=== PATIENT | male | born 1950 | race Caucasian/White ===

== ENCOUNTER 2023-01-15 05:23 | Day surgery (SDC) | payer MEDICARE, OTHER, SELFPAY ==
[2022-12-31 10:17] VITALS: BMI 28.8
--- NOTE | 2023-01-14 14:40 | PM.HPGS ---
History of Present Illness History of Present Illness Consent: Risks, benefits, and alternatives have been discussed and questions answered. Patient agrees to proceed with procedure. Chief complaint: neoplasm screening Narrative: Álvaro Montes is a 72 year old male referred for colon cancer screening. His last colonoscopy was 11 years ago. Review of Systems Review of Systems: All systems reviewed & are unremarkable except as noted in HPI and below PMFSH Social History Social History Smoking status: Never smoker Alcohol intake: current Drinks per week: 1 Substance use: never Substance use type: does not use Living arrangements: with family Spiritual care concerns: No Meds Home Medications and Allergies Home Medications Medication Instructions Recorded Confirmed Type simvastatin 20 mg tablet 70 mg PO DAILY 12/31/22 01/15/23 History Allergies Allergy/AdvReac Type Severity Reaction Status Date / Time No Known Allergies Allergy Verified 01/15/23 07:00 Exam Const: General: alert Orientation/consciousness: patient oriented x3 Resp: Auscultation: clear to auscultation bilaterally Cardio: Rhythm: regular rhythm GI: GI Palp: Yes Soft to palpation and No Tenderness to palpation present (GI) Neuro: General: patient oriented x3 Assessment and Plan Assessment and plan (1) Colon cancer screening: Code(s): Z12.11 - Encounter for screening for malignant neoplasm of colon Status: Acute Assessment and Plan: Colonoscopy with possible biopsy or polypectomy or cautery or injection of substances.
[2023-01-15 07:02] VITALS: BP 116/75; PULSE 63; RESP 20; TEMP 36.6; O2SAT 98; BMI 27.9
[2023-01-15] MEDS: LACTATED RINGERS 1,000 ML 150 ML IV CONT (07:04)
--- NOTE | 2023-01-15 07:54 | P.PNAN_ITS ---
Anes - Initial Pre Proc Eval Procedure: Operation Date: 01/15/23 08:15 Proposed Procedures p Screening Colonoscopy - Donald Estrada MD Date/Time: 01/15/23 07:54 Surgeon: Donald Estrada MD Pre Op Diagnosis: neoplasm screening Patient Data Age: 72 Gender: M Height: 1.91 m Weight: 101.4 kg Last Vital Signs Temp 97.8 F 01/15/23 07:02 Pulse 63 01/15/23 07:02 Resp 20 01/15/23 07:02 BP 116/75 01/15/23 07:02 Pulse Ox 98 01/15/23 07:02 O2 Del Method Room Air 01/15/23 07:02 Allergies Allergy/AdvReac Type Severity Reaction Status Date / Time No Known Allergies Allergy Verified 01/15/23 07:00 Home Medications Medication Instructions Recorded Confirmed Type simvastatin 20 mg tablet 70 mg PO DAILY 12/31/22 01/15/23 History Patient hx anesthesia problems: none Family hx anesthesia problems: none Results Review: All pre-operative results and documents have been reviewed as part of the pre- operative evaluation. [facility] Social History Social History Smoking status: Never smoker Alcohol intake: current Drinks per week: 1 Substance use: never Substance use type: does not use Living arrangements: with family Spiritual care concerns: No Anes - Eval Final PreProcedure Day of Procedure 01/15/23 07:54 Patient weight: normal Heart: regular rate and rhythm Lungs: clear to auscultation Airway: Mallampati scale class II Neurological: alert and oriented Last oral intake: >/= 8 hours ASA classification: III Emergent: no Anesthetic plan: proceed Anesthesia type and monitoring: general GIVS and standard monitoring Results Review: All pre-operative results and documents have been reviewed as part of the pre- operative evaluation. Informed Consent: The patient's anesthetic plan and its attendant risks and benefits were discussed with the patient/family/POA. Questions were solicited and answers provided to the satisfaction of the patient/family/POA.
[2023-01-15 08:28] VITALS: BP 95/60; PULSE 56; RESP 18; O2SAT 95
[2023-01-15 08:38] VITALS: BP 98/66; PULSE 52; RESP 13; O2SAT 97
[2023-01-15 08:48] VITALS: BP 103/69; PULSE 58; RESP 18; O2SAT 97
== END 2023-01-15 08:52 | disposition home or self-care (01) ==
PROVIDERS: Visit Provider Internal Medicine Gastroenterology
PROC: 0DJD8ZZ Inspection of Lower Intestinal Tract, Via Natural or Artificial Opening Endoscopic (ICD-10-PCS; CPT 45378; principal; 2023-01-15 08:15)
DX: Z12.11 Encounter for screening for malignant neoplasm of colon (principal); D12.8 Benign neoplasm of rectum
CPT/HCPCS: 45380; 88305; J2704; J7120

== ENCOUNTER 2025-04-25 08:21 | Outpatient (CLI) | payer MEDICARE, OTHER, SELFPAY ==
[2025-04-25 11:04] LABS: Hematocrit 44.9 % (42.0-52.0); Hemoglobin 14.6 g/dL (14.0-18.0); Immature Granulocyte Percent A 0.2 % (0-0.5); Lymphocytes Absolute Auto 2.54 K/mm3 (0.9-3.2); Mean Corpuscular HGB Conc 32.5 g/dl (32-36); Mean Corpuscular Hemoglobin 30.0 pg (26-34); Mean Corpuscular Volume 92.4 fl (80-100); Nucleated Red Blood Cells Absolute Auto 0.000 K/mm3 (0.0-0.012); Nucleated Red Blood Cells Perc 0.0 % (0.0-0.2); Platelet Count Result 239 k/mm3 (150-375); Red Blood Count 4.86 M/mm3 (4.6-6.20); White Blood Count 6.6 K/mm3 (4.5-10.0)
[2025-04-25 11:08] LABS: Alanine Aminotransferase 20 U/L (6-50); Albumin Level 4.1 g/dL (3.5-5.1); Alkaline Phosphatase 65 U/L (38-126); Anion Gap 3 mmol/L (4-12); Aspartate Amino Transferase 44 U/L (17-59); Bilirubin,Total 0.7 mg/dL (0.2-1.3); Blood Urea Nitrogen 16 mg/dL (9-20); Calcium 9.2 mg/dL (8.4-10.2); Carbon Dioxide 30 mmol/L (22-30); Chloride 103 mmol/L (98-107); Cholesterol 207 mg/dL (0-200); Estimated Glomerular Filt Rate > 60; Glucose 102 mg/dL (65-110); HDL Direct 57 mg/dL; Potassium 4.5 mmol/L (3.4-5.0); Sodium 136 mmol/L (137-145); Total Protein 7.6 g/dL (6.3-8.2); Triglycerides 60 mg/dL (<150)
[2025-04-25 11:41] LABS: Thyroid Stimulating Hormone Reflex 4.070 uIU/mL (0.465-4.68)
[2025-04-25 11:45] LABS: Prostate Specific Antigen 0.2 ng/mL (< OR = 4.0)
[2025-04-25 12:05] LABS: Vitamin B12 462.0 pg/mL (239-931)
[2025-04-25 12:22] LABS: Hemoglobin A1C 5.9 % (<5.7)
[2025-04-25 14:49] LABS: Free T4 Free Thyroxine Reflex 0.86 ng/dL (0.78-2.19)
[2025-04-25 15:32] LABS: Total Triiodothyronine (T3) 0.83 NG/ML (0.82-1.58)
== END 2025-04-25 08:22 | disposition home or self-care (01) ==
LOC: ANHGOSHLAB 08:22
PROVIDERS: PCP Family Medicine; Visit Provider Family Medicine
DX: E53.8 Deficiency of other specified B group vitamins (principal); E78.5 Hyperlipidemia, unspecified; E55.9 Vitamin D deficiency, unspecified; R73.9 Hyperglycemia, unspecified; F41.9 Anxiety disorder, unspecified; Z12.5 Encounter for screening for malignant neoplasm of prostate; Z79.899 Other long term (current) drug therapy
CPT/HCPCS: 36415; 80053; 80061; 82306; 82607; 83036; 84153; 84439; 84443; 84480; 85025; G0103